=== PATIENT | female | born 1950 | race Caucasian/White ===

== ENCOUNTER → 2017-10-07 12:47 | Outpatient (CLI) | payer MEDICARE, OTHER, SELFPAY ==
--- NOTE | 2017-10-07 | DI.MG.S_ITS ---
UNILATERAL RIGHT DIGITAL DIAGNOSTIC MAMMOGRAM 3D/2D SHORT-TERM FOLLOW-UP: 10/07/2017 CLINICAL: Patient returns for a 6 month follow up of the right breast. Comparison is made to exams dated: 04/08/2017 mammogram - [facility], 04/01/2017 mammogram - [facility], and 01/14/2016 mammogram - [facility]. The tissue of both breasts is predominantly fatty. There is a focal asymmetry in the right breast at 11 o'clock middle depth. There is architectural distortion associated with the focal asymmetry. This is slightly more conspicuous than on the prior mammogram dated 03/22/17. No other significant masses, calcifications, or other findings are seen in either breast. IMPRESSION: SUSPICIOUS OF MALIGNANCY The focal asymmetry in the right breast is at an intermediate suspicion for malignancy. This was not seen on ultrasound in March 2017. A stereotactic biopsy is recommended. NOTE: For mammograms, a report in lay terms will be sent to the patient. Approximately 15% of breast malignancies will not be visualized mammographically. In the management of a palpable breast mass, a negative mammogram must not discourage biopsy of a clinically suspicious lesion. SUMMARY: This was discussed with the patient by Dr. Smiley at the time of the exam. Electronically Signed By: Kristi Carter M.D. lk/:10/08/2017 11:44:39 letter sent: Biopsy Required ACR BI-RADS Category 4b: Suspicious abnormality - intermediate suspicion of malignancy [id number]
== END ==
PROVIDERS: Visit Provider Internal Medicine
DX: R92.8 Other abnormal and inconclusive findings on diagnostic imaging of breast (principal)
CPT/HCPCS: 77065; G0279